=== PATIENT | female | born 1990 | race Caucasian/White ===

== ENCOUNTER 2019-02-01 09:02 | Emergency (ER) | payer OTHER ==
[~2019-02-01 09:02] MED LIST: PRENATAL1 TA1 PO; TYLENOL PO
[2019-02-01 09:08] VITALS: BP 118/82; Ht 170.2 cm
== END 2019-02-01 09:43 | disposition home or self-care (01) ==
LOC: ED 09:02
DX: L73.9 Follicular disorder, unspecified (principal)

== ENCOUNTER 2019-12-29 15:59 | Inpatient (IN) | payer OTHER ==
[~2019-12-29] VITALS: Ht 170.2 cm; Wt 123.8 kg
[2019-12-29 15:59] VITALS: Ht 170.2 cm; Wt 123.8 kg
[2019-12-29 16:29] LABS: BASOPHIL % 1.4 % (0-2)
[2019-12-29 16:30] LABS: PLATELET COUNT 432 x10^3mcL (130-400); RED CELL DISTRIBUTION WIDTH 14.9 % (11.5-14.5)
[2019-12-29 16:39] LABS: CALCIUM 8.7 mg/dL (8.5-10.1); CARBON DIOXIDE 29.9 mmol/L (21-32); CHLORIDE SERUM 101 mmol/L (98-107); CREATININE SERUM 0.9 mg/dL (0.6-1.0); GFR1 > 60 mL/min; GLUCOSE SERUM 100 mg/dL (74-106); POTASSIUM SERUM 3.6 mmol/L (3.5-5.1); SODIUM SERUM 139 mmol/L (136-145)
[2019-12-29 16:44] LABS: ALKALINE PHOSPHATASE 114 U/L (46-116); ALT/SGPT 32 U/L (14-59); AST/SGOT 19 U/L (15-37); BILIRUBIN TOTAL 0.2 mg/dL (0.20-1.00)
[2019-12-29 16:59] LABS: ALBUMIN 3.2 g/dL (3.4-5.0)
[2019-12-29 17:09] LABS: microscopic required? NO
[2019-12-29 17:26] LABS: UA SPECIFIC GRAVITY <=1.005 (1.005-1.035); urine erythrocyte NEGATIVE (NEGATIVE)
[2019-12-30 00:14] VITALS: BP 106/63
[2019-12-30 00:36] LABS: FREE T4 1.02 ng/dL (0.76-1.46); FREE THYROXINE INDEX 3.4 ug/dL (1.4-4.5); T4(THYROXINE) 10.3 ug/dL (4.7-13.3)
[2019-12-30 05:21] VITALS: BP 94/44
[2019-12-30 06:23] LABS: BASOPHIL % 0.4 % (0-2); PLATELET COUNT 319 x10^3mcL (130-400)
[2019-12-30 06:29] VITALS: BP 108/62
[2019-12-30 06:34] LABS: RED CELL DISTRIBUTION WIDTH 15.1 % (11.5-14.5)
[2019-12-30 06:58] LABS: CARBON DIOXIDE 30.1 mmol/L (21-32); CHLORIDE SERUM 105 mmol/L (98-107); CREATININE SERUM 0.9 mg/dL (0.6-1.0); GFR1 > 60 mL/min; GLUCOSE SERUM 93 mg/dL (74-106); POTASSIUM SERUM 3.9 mmol/L (3.5-5.1); SODIUM SERUM 141 mmol/L (136-145)
[2019-12-30 09:02] VITALS: BP 100/54
[2019-12-30 10:24] LABS: T3 TOTAL 1.55 ng/mL
[2019-12-30] MEDS ORDERED: MOT600 PO (11:02)
[2019-12-30 11:10] VITALS: BP 100/54
== END 2019-12-30 13:23 | disposition home or self-care (01) | DRG 760 ==
LOC: ED 15:59 → MU 22:40
PROVIDERS: Emergency Medicine; ADMIT Family Medicine
DX: N83.292 Other ovarian cyst, left side (principal); E44.0 Moderate protein-calorie malnutrition; F43.8 Other reactions to severe stress; E83.51 Hypocalcemia; Z97.5 Presence of (intrauterine) contraceptive device; Z68.39 Body mass index [BMI] 39.0-39.9, adult
CPT/HCPCS: 84439; 87491; 87591; G0378; J1885; J2270; J2405; J3010; J7030; Q0092; Q9967